=== PATIENT | male | born 1960 | race Hispanic/Latino ===

== ENCOUNTER 2022-02-04 10:27 | Emergency (ER) | payer BC ==
[~2022-02-04] VITALS: Ht 170.2 cm; Wt 120.2 kg
[~2022-02-04 10:27] MED LIST: DOXYCYCLINE HY100 MG PO; PREDNISONE20 MG PO; TESSALON PERLE100 MG PO; VENTOLIN HFA18 GM PO
[2022-02-04] MEDS ORDERED: AMOX TR-K CLV1 EAC2 PO (11:19)
== END 2022-02-04 11:32 | disposition home or self-care (01) ==
LOC: FSED 10:37
DX: J06.9 Acute upper respiratory infection, unspecified (principal); E78.5 Hyperlipidemia, unspecified; I10 Essential (primary) hypertension
CPT/HCPCS: 83518; 87400; 99282